=== PATIENT | male | born 1960 | race Native Hawaiian/Other Pacific Islander ===

== ENCOUNTER 2017-12-20 10:31 | Emergency (ER) | payer MEDICAID, OTHER ==
[2017-12-20 10:37] VITALS: BMI 30.5
[2017-12-20] MEDS ORDERED: Sodium Chloride 0.9% 1,000 ML IV ONE (10:57)
[2017-12-20] MEDS ORDERED: Sodium Chloride 0.9% 1,000 ML ONE (11:07)
--- NOTE | 2017-12-20 11:25 | C.PDOC ---
History Of Present Illness 57 y/o male presents to ED c/o lower back pain radiating to bilateral lower abdominal pain since last night. Notes that abdominal pain is worse on the right side, is described as constant, and worse with movement. Notes having similar symptoms several years ago which resolved spontaneously. He admits to not taking his HTN medication today. Notes having normal bowel movement yesterday. Denies n/v/d, dysuria, hematuria, testicular pain, or fever. Time Seen by Provider: 12/20/17 10:50 Chief Complaint (Nursing): Abdominal Pain History Per: Patient History/Exam Limitations: no limitations Onset/Duration Of Symptoms: Days Current Symptoms Are (Timing): Still Present Location Of Pain/Discomfort: RLQ, LLQ Radiation Of Pain To:: Back Quality Of Discomfort: "Pain" Associated Symptoms: Back Pain. denies: Nausea, Vomiting, Diarrhea, Loss Of Appetite, Chest Pain, Urinary Symptoms Exacerbating Factors: Movement Alleviating Factors: None Last Bowel Movement: Yesterday Recent travel outside of the [place]: No Additional History Per: Patient Past Medical History Reviewed: Historical Data, Nursing Documentation, Vital Signs Vital Signs: Last Vital Signs Temp 98.2 F 12/20/17 14:30 Pulse 68 12/20/17 14:30 Resp 16 12/20/17 14:30 BP 136/86 12/20/17 14:30 Pulse Ox 100 12/20/17 14:30 - Medical History PMH: Diverticulitis, HTN - [facility] ENDOSC POLYPECTOMY OF LG INTEST (07/01/13) Family History: States: Unknown Family Hx - Social History Hx Alcohol Use: Yes Hx Substance Use: No Review Of Systems Except As Marked, All Systems Reviewed And Found Negative. Constitutional: Negative for: Fever, Chills Gastrointestinal: Positive for: Abdominal Pain. Negative for: Nausea, Vomiting , Diarrhea, Constipation Genitourinary: Negative for: Dysuria, Frequency, Incontinence, Hematuria, Scrotal Pain Musculoskeletal: Positive for: Back Pain Neurological: Negative for: Weakness, Numbness Physical Exam - Physical Exam Appears: Non-toxic, No Acute Distress Skin: Normal Color, Warm, Dry Head: Atraumatic, Normacephalic Eye(s): bilateral: Normal Inspection, EOMI Nose: Normal Oral Mucosa: Moist Neck: Normal ROM, Supple Chest: Symmetrical Cardiovascular: Rhythm Regular Respiratory: Normal Breath Sounds, No Rales, No Rhonchi, No Wheezing Gastrointestinal/Abdominal: Soft, Tenderness (bilateral lower quadrants), No Guarding, No Rebound Back: No CVA Tenderness, No Vertebral Tenderness, Paraspinal Tenderness ( paralumbar) Extremity: Normal ROM Neurological/Psych: Oriented x3, Normal Speech ED Course And Treatment - Laboratory Results Result Diagrams: 12/20/17 11:24 12/20/17 11:24 O2 Sat by Pulse Oximetry: 100 (RA) Pulse Ox Interpretation: Normal - CT Scan/US Abd Pelvis CT Other Rad Studies (CT/US): Read By Radiologist, Radiology Report Reviewed CT/US Interpretation: Date of service: 12/20/2017. PROCEDURE: CT Abdomen and Pelvis with contrast. HISTORY: abd pain. COMPARISON: None. TECHNIQUE: Contrast dose: Visipaque 320, 100 cc. Radiation dose: Total exam DLP = 521.24 mGy-cm. This CT exam was performed using one or more of the following dose reduction techniques: Automated exposure control, adjustment of the mA and/or kV according to patient size, and/or use of iterative reconstruction technique. FINDINGS: LOWER THORAX: Cardiomegaly. No pleural or pericardial effusion. LIVER: There is a small lucency at the dome of the liver measuring 1.3 cm representing a small cyst. Liver is also diminished in attenuation diffusely, compatible with diffuse fatty infiltration. No intrahepatic biliary dilatation. GALLBLADDER AND BILE DUCTS: Gallbladder is only mildly distended with several radiodense calculi in the lumen. CBD caliber appears normal. PANCREAS : Unremarkable. No gross lesion or ductal dilatation. SPLEEN: Unremarkable. ADRENALS: Unremarkable. No mass. KIDNEYS AND URETERS: Unremarkable. No hydronephrosis. No solid mass. VASCULATURE: Unremarkable. No aortic aneurysm. BOWEL: Stomach is collapsed and is limited in evaluation. The bowel is not appear obstructed. Lack of oral contrast limits interpretation. Moderate fecal loading seen throughout the proximal half of the colon. Remainder is limited. Marked thickening of the mid sigmoid colon is appreciated with extensive distal descending and diffuse sigmoid colonic diverticular changes present. Local reactive changes seen at the mid sigmoid colon compatible with diverticulitis. Underlying lesion is not excluded and follow-up lower endoscopy is advised when feasible following therapy. No abscess. APPENDIX: Normal appendix. PERITONEUM: Unremarkable. No free fluid. No free air. LYMPH NODES: Unremarkable. No enlarged lymph nodes. BLADDER: Unremarkable. REPRODUCTIVE: Mild prostate gland enlargement noted. BONES: No acute fracture. OTHER FINDINGS: None. IMPRESSION: 1. Left colonic diverticular changes are identified concentrated at the sigmoid colon with mid sigmoid mural thickening and local perineal/pericolic reaction compatible with active diverticulitis without CT sign of rupture. No abscess formation. 2. Hepatic steatosis. Small cyst dome liver right lobe. 3. Cholelithiasis. Progress Note: Blood work, UA, Abd Pelvis CT ordered and reviewed. Pt was given Norvasc, Protonix, Toradol, and IV fluids. On reassessment, patient is resting comfortably, abdomen remains soft, no acute distress. Pt is being discharged home with instructions to follow up with PMD in 1-2 days for further evaluation. Dr Thompson informed of results and will follow up out pt. Pt reports h/o colonscopy 2-[address] Ornelas. Disposition - Disposition Referrals: Clement Ornelas MD [Staff Provider] - Disposition: HOME/ ROUTINE Disposition Time: 14:10 Condition: STABLE Additional Instructions: Follow up with your doctor in 1-2 days. Return to ER if symptoms persist or worsen. Prescriptions: Ciprofloxacin HCl [Cipro] 500 mg PO BID #14 tab Metronidazole [Flagyl] 500 mg PO BID #14 tab Instructions: Diverticulitis (DC) Forms: [facility] (Yi) - Clinical Impression Clinical Impression: Diverticulitis - PA / [employer] / Resident Statement MD/DO has reviewed & agrees with the documentation as recorded. - Scribe Statement The provider has reviewed the documentation as recorded by the Scribe KP All medical record entries made by the Scribe were at my direction and personally dictated by me. I have reviewed the chart and agree that the record accurately reflects my personal performance of the history, physical exam, medical decision making, and the department course for this patient. I have also personally directed, reviewed, and agree with the discharge instructions and disposition.
[2017-12-20 11:28] LABS: BASO % 0.5 % (0.0-2.0); EOS # 0.2 K/uL (0.0-0.7); EOS % 2.7 % (0.0-4.0); HEMOGLOBIN 12.8 g/dL (12.0-18.0); LYMPH # 1.7 K/uL (1.0-4.3); LYMPH % 19.7 % (20.0-40.0); MEAN CELL VOLUME 66.6 fL (80.0-94.0); MEAN CORPUSCULAR HEMOGLOBIN 21.2 pg (27.0-31.0); MEAN CORPUSCULAR HGB CONC 31.9 g/dL (33.0-37.0); MEAN PLATELET VOLUME 6.7 fL (7.2-11.7); MONO # 0.5 K/uL (0.0-0.8); MONO % 5.9 % (0.0-10.0); NEUT # 6.3 K/uL (1.8-7.0); NEUT % 71.2 % (50.0-75.0); RBC 6.01 Mil/uL (4.40-5.90); RED CELL DISTRIBUTION WIDTH 14.5 % (11.5-14.5); WHITE BLOOD COUNT 8.8 K/uL (4.8-10.8)
[2017-12-20 11:43] LABS: ALB/GLOB RATIO 1.4 (1.0-2.1); ALBUMIN 4.2 g/dL (3.5-5.0); ALT/SGPT 43 U/L (21-72); AST/SGOT 34 U/L (17-59); BLOOD UREA NITROGEN 18 mg/dL (9-20); GFR AFRICAN-AMERICAN > 60; GFR NON-AFRICAN AMERICAN > 60; LIPASE 143 U/L (23-300)
[2017-12-20 11:44] LABS: URINE BILIRUBIN NEGATIVE (NEGATIVE); URINE BLOOD NEGATIVE (NEGATIVE); URINE CLARITY Clear (Clear); URINE COLOR Yellow (YELLOW); URINE GLUCOSE (UA) NORMAL (Normal); URINE LEUKOCYTE ESTERASE NEG Leu/uL (Negative); URINE PROTEIN NEGATIVE (NEGATIVE)
[2017-12-20] MEDS ORDERED: Iodixanol 320 MG/ML 100 ML BOTTLE IV ONE (12:09)
--- NOTE | 2017-12-20 14:04 | CT ---
Date of service: 12/20/2017 PROCEDURE: CT Abdomen and Pelvis with contrast HISTORY: abd pain COMPARISON: None. TECHNIQUE: Contrast dose: Visipaque 320, 100 cc Radiation dose: Total exam DLP = 521.24 mGy-cm. This CT exam was performed using one or more of the following dose reduction techniques: Automated exposure control, adjustment of the mA and/or kV according to patient size, and/or use of iterative reconstruction technique. FINDINGS: LOWER THORAX: Cardiomegaly. No pleural or pericardial effusion. LIVER: There is a small lucency at the dome of the liver measuring 1.3 cm representing a small cyst. Liver is also diminished in attenuation diffusely, compatible with diffuse fatty infiltration. No intrahepatic biliary dilatation. GALLBLADDER AND BILE DUCTS: Gallbladder is only mildly distended with several radiodense calculi in the lumen. CBD caliber appears normal. PANCREAS: Unremarkable. No gross lesion or ductal dilatation. SPLEEN: Unremarkable. ADRENALS: Unremarkable. No mass. KIDNEYS AND URETERS: Unremarkable. No hydronephrosis. No solid mass. VASCULATURE: Unremarkable. No aortic aneurysm. BOWEL: Stomach is collapsed and is limited in evaluation. The bowel is not appear obstructed. Lack of oral contrast limits interpretation. Moderate fecal loading seen throughout the proximal half of the colon. Remainder is limited. Marked thickening of the mid sigmoid colon is appreciated with extensive distal descending and diffuse sigmoid colonic diverticular changes present. Local reactive changes seen at the mid sigmoid colon compatible with diverticulitis. Underlying lesion is not excluded and follow-up lower endoscopy is advised when feasible following therapy. No abscess. APPENDIX: Normal appendix. PERITONEUM: Unremarkable. No free fluid. No free air. LYMPH NODES: Unremarkable. No enlarged lymph nodes. BLADDER: Unremarkable. REPRODUCTIVE: Mild prostate gland enlargement noted. BONES: No acute fracture. OTHER FINDINGS: None. IMPRESSION: 1. Left colonic diverticular changes are identified concentrated at the sigmoid colon with mid sigmoid mural thickening and local perineal/pericolic reaction compatible with active diverticulitis without CT sign of rupture. No abscess formation. 2. Hepatic steatosis. Small cyst dome liver right lobe. 3. Cholelithiasis.
[2017-12-20 14:11] VITALS: O2SAT 100
[2017-12-20 14:31] VITALS: BP 136/86; PULSE 68; RESP 16; TEMP 98.2
== END 2017-12-20 14:31 | disposition home or self-care (01) ==
LOC: C.ER 10:31
DX: K57.92 Diverticulitis of intestine, part unspecified, without perforation or abscess without bleeding (principal); I10 Essential (primary) hypertension; F17.200 Nicotine dependence, unspecified, uncomplicated
CPT/HCPCS: 74177; 80053; 81001; 83690; 85025; 96374; 96375; 99285; C9113; J1885; J7030; Q9967